=== PATIENT | male | born 1940 | race Caucasian/White ===

== ENCOUNTER 2021-08-22 16:38 | Observation (INO) | payer MEDICARE ==
[~2021-08-22] VITALS: Wt 84.9 kg
[2021-08-22 17:12] LABS: BASO % 0.3 % (0.0-2.0); EOS # 0.1 K/mm3 (0.0-0.7); EOS % 0.6 % (0-4.0); GRAN # 8.8 K/mm3 (1.4-6.5); GRAN % 75.8 % (42.2-75.2); HEMATOCRIT 45.5 % (42.0-52.0); LYMPH % 16.8 % (20.0-51.0); MEAN CELL VOLUME 91 fl (80.0-100.0); MEAN CORPUSCULAR HEMOGLOBIN 30 pg (27.0-31.0); MEAN CORPUSCULAR HGB CONC 33 g/dl (33.0-37.0); MEAN PLATELET VOLUME 9.5 fl (7.4-10.4); MONO # 0.7 K/mm3 (0.1-0.6); MONO % 6.1 % (1.7-9.3); PLATELET COUNT 358 K/mm3 (130-400); RED BLOOD COUNT 4.98 M/mm3 (4.20-5.60); REDCELL DISTRIBUTION WIDTH-CV 13.5 % (11.5-14.5)
[2021-08-22 17:32] LABS: ALBUMIN 3.6 gm/dL (3.4-4.8); BILIRUBIN,TOTAL 0.4 mg/dL (0.2-1.2); CALCIUM 9.3 mg/dL (8.4-10.2); CREATININE, serum 1.48 mg/dL (0.72-1.25); POTASSIUM 4.5 mmol/L (3.5-4.5); TOTAL PROTEIN 7.2 gm/dL (6.2-8.1)
[2021-08-22 17:39] LABS: TROPONIN-I 0.061 ng/mL (0.00-0.033)
[2021-08-22] MEDS ORDERED: PRINIVIL10 MG PO (19:16)
[2021-08-22 20:42] LABS: MAGNESIUM 2.3 mg/dL (1.6-2.6)
[2021-08-22 21:02] LABS: TSH w REFLEX 1.468 uIU/mL (0.350-4.940)
--- NOTE | 2021-08-22 21:17 | NUR ---
Contacted TEMITOPE Cheney for pre-approval for Cardizem drip to be administered in acute care setting.
--- NOTE | 2021-08-22 22:00 | NUR ---
PT ADMITTED TO ROOM 357 PER CART FROM ED ACCOMPANIED BY REFRACTORY GRINDER OPERATOR, CURRENTLY ON CARDIZEM DRIP @3 MG/HR RUNNING INTO RAC PERIPHERAL SITE AND HEPARIN DRIP @15 CC/HR INTO LAC PERIPHERAL SITE. ON RA. ORIENTED TO ROOM AND PLAN OF CARE. PT ABLE TO AMBULATE AD MAHAD, ALERT AND ORIENTED X4, WEDDING COORDINATOR IN PLACE. PT SEEN IN ED BY MARIXA CALDWELL, ORDERS IN PLACE. PT IS PRIMARY CAREGIVER OF SPOUSE WITH DEMENTIA, HE IS WORRIED ABOUT BEING AWAY FROM HER, SHE IS CURRENTLY WITH THEIR DAUGHTER.
[2021-08-22 22:13] VITALS: BP 122/74; PULSE 78; TEMP 97.5
[2021-08-22] MEDS ORDERED: ASPIRIN 81M81 MG/TA2 PO (22:43)
[2021-08-23] VITALS (12 sets, daily range): BP systolic 93–127; BP diastolic 59–91; PULSE 53–162; TEMP 97.5–98
--- NOTE | 2021-08-23 00:45 | NUR ---
NOTIFIED BY LAB HEP XA 1.2, HEPARIN STOPPED FOR 2 HRS, PTT AND HEP XA ORDERED FOR 0245
--- NOTE | 2021-08-23 01:40 | NUR ---
REC'D CALL FROM TELE MONITOR, PT CONVERTED TO NSR
--- NOTE | 2021-08-23 03:15 | NUR ---
BODY WORK AUTO TRIMMER HERE TO DRAW PTT AND HEP XA ORDERED FOR 0245, HEPARIN REMAINS OFF
--- NOTE | 2021-08-23 03:29 | NUR ---
PT RETURNED TO A FIB/FLUTTER WITH RVR
[2021-08-23 04:03] LABS: PARTIAL THROMBOPLASTIN TIME 63.3 SECONDS (26.0-37.0)
--- NOTE | 2021-08-23 04:05 | NUR ---
REC'D CALL FROM LAB, PTT 63.3 HEP XA 0.46, RESTARTED HEPARIN @15CC/HR.
--- NOTE | 2021-08-23 04:47 | NUR ---
REVIEWED HEPARIN PROTOCOL WITH NARGIS LEIVAFAN ENGINE ENGINEER AND NARGIS TABARES, RATE DECREASED TO 12CC/HR REPEAT HEP XA ORDERED FOR 1045
--- NOTE | 2021-08-23 07:15 | NUR ---
Patient sitting up right in bed. IV heparin and cardizem infusing. No pain or redness. Telemetry on. Shift assessment complete. Heart rate at 58 and pt denies any headache, dizziness, SOB. Patient remains NPO for cardioversion. Call light within reach.
[2021-08-23 07:46] LABS: BASO # 0.1 K/mm3 (0.0-0.2); BASO % 0.7 % (0.0-2.0); EOS # 0.2 K/mm3 (0.0-0.7); GRAN # 5.8 K/mm3 (1.4-6.5); GRAN % 68.3 % (42.2-75.2); HEMATOCRIT 39.8 % (42.0-52.0); HEMOGLOBIN 13.1 g/dl (13.5-18.0); LYMPH # 1.8 K/mm3 (1.2-3.4); LYMPH % 20.7 % (20.0-51.0); MEAN CELL VOLUME 92 fl (80.0-100.0); MEAN CORPUSCULAR HEMOGLOBIN 30 pg (27.0-31.0); MEAN CORPUSCULAR HGB CONC 33 g/dl (33.0-37.0); MONO # 0.7 K/mm3 (0.1-0.6); MONO % 7.8 % (1.7-9.3); PLATELET COUNT 271 K/mm3 (130-400); RED BLOOD COUNT 4.35 M/mm3 (4.20-5.60); REDCELL DISTRIBUTION WIDTH-CV 13.6 % (11.5-14.5)
[2021-08-23 08:09] LABS: CALCIUM 8.1 mg/dL (8.4-10.2); CREATININE, serum 0.98 mg/dL (0.72-1.25); POTASSIUM 4.3 mmol/L (3.5-4.5)
--- NOTE | 2021-08-23 08:17 | NUR ---
NOTFIED OF HR IN 160S AND CRITICAL TROPONIN OF 0.099.
--- NOTE | 2021-08-23 08:27 | NUR ---
PT REFUSING ABX, STATING HIS PCP IS AWARE OF LUNG OPACITIES. PT ADAMANT ABOUT RECEIVING PROCEDURE THIS AM AND GOING HOME.
--- NOTE | 2021-08-23 10:13 | NUR ---
Initial visit; Patient thanked Plug Machine Operator for looking in on him and offering God's blessings. Patient introduced Plug Machine Operator to his and daughter.
--- NOTE | 2021-08-23 16:29 | NUR ---
Carpenter Form met with patient to discuss discharge planning. Patient lives in [place] with his , Kristin who is at bedside. Patient sees Dr. Silveira for primary care and obtains medications from [facility] with no difficulties. Patient does not use any DME and is independent with ADLS. Patient reports he has DPOA-HC completed which designates his daughter, Jessica (ph#[phone]). Patient plans to return home upon discharge and is hopeful he can go home today. ТАТЬЯНА collaborated with RN who advised patient has been independent in his room. Discharge Plan: Home
[2021-08-23] MEDS ORDERED: PACERONE400 MG PO ×2 (16:57)
[2021-08-23] MEDS ORDERED: ELIQUIS 5MG PO (16:58)
--- NOTE | 2021-08-23 17:04 | NUR ---
NOTIFIED DR. HAYES OF RESPIRATORY THERAPY EKG STATING AFIB. DR. HAYES REVIEWED NEW EKG STRIP, STATED IN SINUS RHYTHM. NO FURTHER ORDERS AT THIS TIME.
--- NOTE | 2021-08-23 18:30 | NUR ---
Shift report received from Dolores. Patient currently resting in bed with family at bedside. No signs of acute distress. Discharge planning for tonight underway.
--- NOTE | 2021-08-23 18:38 | NUR ---
Pt progressing on plan of care. Post op vitals initiated and monitored after receiving pt back on unit. Pt remains stable, no significant changes noted this shift. Pt anxious to get home, family at bedside. Pt tolerating oral intake well.
--- NOTE | 2021-08-23 19:16 | NUR ---
BACK CHARTING ASSESSMENT NOTE. PT ALERT AND ORIENTED. PT IS TACHYCARDIC, IRREGULAR RHYTHM NOTED ON TELEMETRY. PT DENIES PAIN OR SOA. PT HAS HYPERACTIVE BOWEL SOUNDS, NON-TENDER IN ALL FOUR QUADRANTS. PT HAS LESION ON LEFT MIDDLE TOE. PT HAS CLEAR LUNGS TO AUSCULTATION. PT HAS 2+ PULSES IN ALL EXTREMITIES. PT EXPRESSES FRUSTRATION ON NOT KNOWING WHEN PROCEDURE WILL BE TODAY. PT FAMILY VISITING.
--- NOTE | 2021-08-23 19:30 | NUR ---
Discharge paperwork reviewed with patient, and daughter at this time. IV's and tele removed. Patient is ambulatory and is escorted out of ED entrance.
== END 2021-08-23 19:45 | disposition home or self-care (01) ==
LOC: COL.ER 16:38 → MEDICAL 18:31
PROVIDERS: Physician Assistant; Student in an Organized Health Care Education/Training Program; ADMIT Internal Medicine
DX: I48.92 Unspecified atrial flutter (principal); R79.89 Other specified abnormal findings of blood chemistry; N17.9 Acute kidney failure, unspecified; D72.829 Elevated white blood cell count, unspecified; I10 Essential (primary) hypertension; F19.90 Other psychoactive substance use, unspecified, uncomplicated; Z79.82 Long term (current) use of aspirin; Z87.891 Personal history of nicotine dependence; Z80.1 Family history of malignant neoplasm of trachea, bronchus and lung; Z86.16 Personal history of COVID-19
CPT/HCPCS: 99239; G0378; J0282; J1644; J7030; J7060

== ENCOUNTER 2021-09-09 20:13 | Inpatient (IN) | payer MEDICARE ==
[~2021-09-09] VITALS: Ht 182.9 cm; Wt 85.5 kg
[~2021-09-09 20:13] MED LIST: ASPIRIN 81M81 MG/TA2 PO; ELIQUIS 5MG PO; PACERONE400 MG PO; PRINIVIL10 MG PO
[2021-09-09 22:15] LABS: BASO # 0.1 K/mm3 (0.0-0.2); BASO % 0.5 % (0.0-2.0); EOS # 0.1 K/mm3 (0.0-0.7); EOS % 0.9 % (0-4.0); GRAN # 10.1 K/mm3 (1.4-6.5); HEMOGLOBIN 13.8 g/dl (13.5-18.0); LYMPH # 0.5 K/mm3 (1.2-3.4); LYMPH % 4.4 % (20.0-51.0); MEAN CELL VOLUME 92 fl (80.0-100.0); MEAN CORPUSCULAR HEMOGLOBIN 30 pg (27.0-31.0); MEAN CORPUSCULAR HGB CONC 33 g/dl (33.0-37.0); MEAN PLATELET VOLUME 8.8 fl (7.4-10.4); MONO # 0.6 K/mm3 (0.1-0.6); MONO % 5.6 % (1.7-9.3); PLATELET COUNT 315 K/mm3 (130-400); RED BLOOD COUNT 4.55 M/mm3 (4.20-5.60); REDCELL DISTRIBUTION WIDTH-CV 13.4 % (11.5-14.5)
[2021-09-09 22:26] LABS: ALBUMIN 3.6 gm/dL (3.4-4.8); BILIRUBIN,TOTAL 0.4 mg/dL (0.2-1.2); CALCIUM 9.2 mg/dL (8.4-10.2); CREATININE, serum 1.38 mg/dL (0.72-1.25); POTASSIUM 3.9 mmol/L (3.5-4.5); TOTAL PROTEIN 6.7 gm/dL (6.2-8.1)
[2021-09-09 23:55] LABS: INR 1.2 (0.8-3.0); PROTHROMBIN TIME 13.5 SECONDS (9.7-12.8)
[2021-09-10] VITALS (7 sets, daily range): BP systolic 119–148; BP diastolic 80–90; PULSE 77–94; TEMP 97.7–98.5
--- NOTE | 2021-09-10 01:15 | NUR ---
0015 PATIENT ARRIVED TO ROOM AT THIS TIME, TRANSFERED TO BED WITH 3 ASSIST AND SLIDE BOARD IN USE 0115 VITAL SIGNS OBTAINED, ORIENTED TO ROOM AND ASSESSMENTS COMPLETED, PATIENT RESTING QUIETLY IN BED EDUCATED ABOUT POC AND ORDERS AT THIS TIME FALL RISK BRACELET AND ID BRACELET APPLIED AND BED ALARM SET BEFORE LEAVING ROOM
[2021-09-10 01:22] LABS: COLLECTION METHOD CATHETER
[2021-09-10 01:31] LABS: MUCOUS Present (NOT PRESENT); PH 6 (5-8); SQUAMOUS EPITHELIAL 0-2 /hpf (0-10); URINE APPEARANCE Hazy (CLEAR/HAZY); URINE BACTERIA None Seen (NONE SEEN); URINE BILIRUBIN Negative (NEGATIVE); URINE BLOOD Negative (NEGATIVE); URINE CALCIUM OXALATE CRYSTAL Present (NOT PRESENT); URINE COLOR Yellow (YELLOW); URINE GLUCOSE Negative (NEGATIVE); URINE KETONE Negative (NEGATIVE); URINE LEUKOCYTE ESTERASE Negative (NEGATIVE); URINE NITRATE Negative (NEGATIVE); URINE PROTEIN(semi-quant) Negative (NEGATIVE); URINE RBC 0-2 /hpf (0-2); URINE UROBILINOGEN Negative (NEGATIVE)
[2021-09-10] MEDS ORDERED: PACERONE400 MG PO (01:44)
[2021-09-10 06:41] LABS: BASO % 0.5 % (0.0-2.0); EOS # 0.1 K/mm3 (0.0-0.7); EOS % 0.7 % (0-4.0); GRAN # 6.7 K/mm3 (1.4-6.5); GRAN % 76.4 % (42.2-75.2); HEMATOCRIT 38.2 % (42.0-52.0); HEMOGLOBIN 12.3 g/dl (13.5-18.0); LYMPH % 11.8 % (20.0-51.0); MEAN CELL VOLUME 94 fl (80.0-100.0); MEAN CORPUSCULAR HEMOGLOBIN 30 pg (27.0-31.0); MEAN CORPUSCULAR HGB CONC 32 g/dl (33.0-37.0); MEAN PLATELET VOLUME 9.2 fl (7.4-10.4); MONO # 0.9 K/mm3 (0.1-0.6); PLATELET COUNT 286 K/mm3 (130-400); RED BLOOD COUNT 4.08 M/mm3 (4.20-5.60); REDCELL DISTRIBUTION WIDTH-CV 13.5 % (11.5-14.5)
[2021-09-10 07:08] LABS: CALCIUM 9.2 mg/dL (8.4-10.2); CREATININE, serum 1.11 mg/dL (0.72-1.25); POTASSIUM 3.9 mmol/L (3.5-4.5)
--- NOTE | 2021-09-10 08:26 | NUR ---
Patient resting in bed. Very concerned about when doctor is going to round. Patient really wanting to have surgery today. Discussed with him that being on eliquis may delay surgery a day or 2, due to bleeding risk. He is not understanding of that. He remains NPO at this time. Complains of dry mouth, mouth swabs provided. Patient IV to Lac bad, IV removed and new IV started to Right wrist. Ivf per orders. Patient voiding using urinal without problems. Patient refusing Scds. Did place Christopher to Right leg & encourage ankle pumps. I spoke to Yesenia Menjivar and make her aware of patient concerns about his . Will monitor patient closely.
--- NOTE | 2021-09-10 13:13 | NUR ---
Patient sitting up in bed, working on lunch tray. Patient continue to void using urinal without difficulty. Doctors rounded this am, He is understanding of plan of care. He is frustrated & worried about his , but really hoping he will be able to have surgery tmrw.
--- NOTE | 2021-09-10 13:59 | NUR ---
Patient reports that he resides locally with her who has Dementia and he is the career technology teacher. Patient reports that he has an adult DTR who supports his care. DTR Yudith . Patient reports pcp is Dr. Mariano Silveira and Dr. Layton? who he thinks he has seen. Patient reports that he is wanting to go home however is not sure what he may need for care support. Patient reports that he is open to having home health for his . Unknown on what supports to offer, will reassess after surgery. Will follow.
--- NOTE | 2021-09-10 14:46 | NUR ---
Tyelnol given for hip pain. Patient concerned about trying to have Bm, Bedpan offered, but he is wanting to use toliet. education provided. Will monitor.
--- NOTE | 2021-09-10 17:04 | NUR ---
Patient attempted to have a BM on bedpan, unsuccessful. Reports passing flatus. Pericares provided & soiled underwear & alondra pad replaced. Patient contineus to use urinal to void. Ice pack to broken hip. Ivf per orders. Dinner ordered Denies nausea or needing anything more for pain. He is expecting visitors this evening. Will monitor.
--- NOTE | 2021-09-10 17:55 | NUR ---
Patient working on his dinner. Denies needs.
[2021-09-11 03:44] VITALS: BP 140/78; PULSE 84; TEMP 97.9
[2021-09-11 06:53] LABS: BASO % 0.5 % (0.0-2.0); EOS # 0.4 K/mm3 (0.0-0.7); EOS % 4.2 % (0-4.0); GRAN # 6.1 K/mm3 (1.4-6.5); GRAN % 71.8 % (42.2-75.2); HEMATOCRIT 37.4 % (42.0-52.0); HEMOGLOBIN 12.5 g/dl (13.5-18.0); LYMPH # 1.1 K/mm3 (1.2-3.4); LYMPH % 12.5 % (20.0-51.0); MEAN CELL VOLUME 91 fl (80.0-100.0); MEAN CORPUSCULAR HEMOGLOBIN 30 pg (27.0-31.0); MEAN CORPUSCULAR HGB CONC 33 g/dl (33.0-37.0); MEAN PLATELET VOLUME 9.4 fl (7.4-10.4); MONO # 0.9 K/mm3 (0.1-0.6); MONO % 10.4 % (1.7-9.3); PLATELET COUNT 289 K/mm3 (130-400); RED BLOOD COUNT 4.11 M/mm3 (4.20-5.60); REDCELL DISTRIBUTION WIDTH-CV 13.6 % (11.5-14.5)
--- NOTE | 2021-09-11 06:57 | NUR ---
Pt. progressing w/ plan of care. Report received from NARGIS Bar. Pt. resting in bed at this time. This RN introduced self to pt. and let him know this law writer would be his nurse for today. Pt. very concerned if he will be getting surgery today or not. The pt. has been NPO since midnight per NARGIS Bar. Pt. reports feeling uncomfortable at this time and agreeable to take tylenol. Pt. wetting mouth with mouth swabs at this time. Pt. denies other needs. Call light and belongings in reach.
[2021-09-11 07:13] LABS: CALCIUM 8.4 mg/dL (8.4-10.2); CREATININE, serum 1.05 mg/dL (0.72-1.25); MAGNESIUM 2.1 mg/dL (1.6-2.6); POTASSIUM 3.9 mmol/L (3.5-4.5)
[2021-09-11 08:15] VITALS: BP 130/89; PULSE 89; TEMP 97.4
--- NOTE | 2021-09-11 08:57 | NUR ---
Pt. progressing w/ plan of care. Pt. will likely have L hip surgery tomorrow per orthopedic CLINICAL LABORATORY SERVICE TEACHER. Pt. agreeable w/ plan of care. Breakfast ordered. Pt. requesting bowel meds for today. Call light and belongings in reach.
[2021-09-11 12:35] VITALS: BP 120/67; PULSE 84; TEMP 97.6
[2021-09-11 16:16] VITALS: BP 115/73; PULSE 84; TEMP 98
--- NOTE | 2021-09-11 17:36 | NUR ---
Pt. progressing w/ plan of care. Needs addressed throughout the day. Plan for pt. to get surgery tomorrow, NPO at midnight tonight. Pt. has been eating fair and drinking well. Pt. reports his dinner has been ordered and should be up shortly. Pt. denies pain when hip is in resting position. Pt. has refused to wear the SCDs today. Education provided regarding SCDs. Pt. remains resting in bed until tomorrow. Call light and belongings in reach.
[2021-09-11 20:11] VITALS: BP 156/66; PULSE 77; TEMP 98.4
--- NOTE | 2021-09-11 21:20 | NUR ---
ALERT AND OX4. DENIES SOA, CHEST PAIN OR DIZZY. DENIES PAIN IN HIP UNLESS MOVING, BED REST. POC DISCUSSED- SURGERY IN AM. PM COLACE AND MIRALAX REFUSED. URINAL AT BEDSIDE. CALL LIGHT WI REACH. ICE WATER REFILLED.
[2021-09-12] VITALS (16 sets, daily range): BP systolic 93–147; BP diastolic 58–95; PULSE 69–90; TEMP 94.3–98.5
--- NOTE | 2021-09-12 05:45 | NUR ---
PT SLEPT OVERNIGHT WITHOUT INCIDENT. NPO SINCE 0000. CONSENTED, LR W TUBING. CLEAN GOWN. READY FOR SURGERY.
[2021-09-12 06:30] LABS: HEMATOCRIT 38.2 % (42.0-52.0); HEMOGLOBIN 12.6 g/dl (13.5-18.0)
[2021-09-12 06:46] LABS: CALCIUM 8.6 mg/dL (8.4-10.2); CREATININE, serum 1.06 mg/dL (0.72-1.25); POTASSIUM 4.2 mmol/L (3.5-4.5)
--- NOTE | 2021-09-12 08:00 | NUR ---
Pt. progressing w/ plan of care. AM assessment complete. Pt. has been NPO since midnight. Plan for surgery to left hip today. Pt. denies pain, call light and belongings in reach. Pt. agreeable w/ plan of care.
--- NOTE | 2021-09-12 10:35 | NUR ---
Initial visit; Patient thanked High School Tutor for offering prayer prior to his Procedure. High School Tutor wished him well.
--- NOTE | 2021-09-12 13:54 | NUR ---
Pt. back from surgery. Pt. able to answer questions and is alert. Call light and belongings in reach. Pt.'s niece is at the bedside.
--- NOTE | 2021-09-12 15:22 | NUR ---
MARIXA Bustos working with Ortho surgeon Dr. Green notified of pt.'s low temp. New order obtained for Bairhugger. MARIXA Patterson notified and Dr. Whitfield notified of pt.'s low temp as well. Bairhugger is now on the patient. Pt. and pt.'s niece updated with plan of care. Frequent vital signs in place.
--- NOTE | 2021-09-12 16:04 | NUR ---
Local Tanker Truck Driver collaborated with Hospitalist who advised patient is having surgery today and will need rehab placement. SW followed up with patient following surgery and his niece, Zahraa is at bedside. SW discussed discharge planning and rehab options including IPR and SNF. Patient is firm that he will be returning home to his and states he will sign himself out of the hospital if he has to. SW discussed Home Health services and provided list of providers in [place]. Patient selected [facility]. SW contacted Renee at [facility] and faxed referral. SW contacted patient's daughter, Jessica (ph#[phone]) to provide update. Jessica advised she feels patient would benefit from post acute rehab and will try to talk with patient about this again. ТАТЬЯНА advised PT/OT would work with patient tomorrow. Discharge Plan: Home with [facility]
--- NOTE | 2021-09-12 16:22 | NUR ---
Pt.'s temp is back to normal. MARIXA Patterson notified. Call light and belongings in reach.
--- NOTE | 2021-09-12 21:45 | NUR ---
PT ATTEMPTED TO AMBULATE HIMSELF BECAUSE HE THOUGHT HE COULD DO IT ON HIS OWN EVEN THOUGH HE HAD BEEN INSTRUCTED TO CALL FOR HELP. HE IS ANIXOUS TO GET HOME TO TAKE CARE OF HIS AND STATES "JUST THOUGHT I COULD". INFORMED THE SPINAL TAKES TIME TO WEAR OFF AND HE SHOULD NEVER GET UP WITHOUT HELP. PT WAS SETTING ON FLOOR BESIDE BED WHEN RN ENTERS ROOM TO TAKE VITALS AND PASS MEDS. HELPED BACK INTO BED, ASSESSED AND CALLED PAULETTE CALVIN TO UPDATE. PT DENIES HITTING HEAD OR FALLING HARD STATES LEGS GAVE OUT AND SLIDE DOWN BED ON BOTTOM. VITALS WILL BE OBTAINED Q 30MIN X2 NOW. BED ALARM SET, TALKED ABOUT SAFTEY AND USE OF CALL LIGHT. PT TRYING TO EXPIDITE HIS RECOVERY, INFORMED HE WILL HAVE SET BACK WITH FALLS AND NOT ALLOWING HELP.
--- NOTE | 2021-09-12 22:36 | NUR ---
2000-ALERT AND OX4. DENIES SOA, CHEST PAIN OR DIZZY. DSG TO LF HIP C/D/I. PT ON PHONE WI FAMILY. DENIES PAIN. NO N/V. DISCUSSED PM MEDS WANTED TO WAIT UNTIL LATER THIS EVENING TO TAKE. WILL CALL. BED IN LOW POSITION, CALL LIGHT WI REACH.
[2021-09-13 00:29] VITALS: BP 147/66; PULSE 89; TEMP 97.4
[2021-09-13 04:42] VITALS: BP 138/59; PULSE 83; TEMP 97.6
--- NOTE | 2021-09-13 05:00 | NUR ---
RESTED THROUGH THE NIGHT AFTER TAKING PAIN PILL. FEELS LIKE ANESTHIA IS WEARING OFF NOW.
--- NOTE | 2021-09-13 06:03 | NUR ---
PT STOOD UP AT EDGE OF BED W WALKER AND GAIT BELT. FRUSTRATED BECAUSE HE WANTS PROGRESS FASTER. HAS A AT HOME TO CARE FOR. TALKED ABOUT HIM NEEDING PT AND IT WILL GET BETTER WITH TIME AND NEEDS TO REMEMBER CAESARTEY FIRST. BED ALARM ON REPOSITION IN BED AND ICE ON SURGICAL SITE.
[2021-09-13 06:42] LABS: HEMOGLOBIN 11.6 g/dl (13.5-18.0)
[2021-09-13 06:48] LABS: HEMATOCRIT 35.2 % (42.0-52.0)
[2021-09-13 07:00] VITALS: BP 137/67; PULSE 90; TEMP 98.6
--- NOTE | 2021-09-13 08:00 | NUR ---
0800 Assessment Completed. Pt had INT to L hand, no redness/edema. Has rojas cath w/ clear yellow output & securement device & an occlusive dressing to L hip that is CDI & radha apple on.
--- NOTE | 2021-09-13 08:15 | NUR ---
Pt ordered breakfast & ate 90% of it.
--- NOTE | 2021-09-13 08:45 | NUR ---
Pt ambulated to commode in bathroom w/ assistance. States "I'm passing gas but still havent had a bowel movement since morning (09/08)."
--- NOTE | 2021-09-13 09:37 | NUR ---
Landa catheter removed per drs order. Tolerated well. Tami-care completed.
[2021-09-13 11:00] VITALS: BP 98/60; PULSE 89; TEMP 98
--- NOTE | 2021-09-13 11:08 | NUR ---
Fall risk protocol implemented. Signage placed on door, yellow gown and slippers placed. Chair alarm placed. Assistance with ambulation reviewed with patient.
--- NOTE | 2021-09-13 13:03 | NUR ---
Follow-up visit; Patient thanked Driller'S Assistant for looking in on him again today and states he is "feeling ok" and has some exercises to do that should help. Patient and Driller'S Assistant talked about his tenriism and mutual friends that were [employer] members. Driller'S Assistant wished Ken well.
--- NOTE | 2021-09-13 14:01 | NUR ---
Touched based with the patient on SNF vs IPR vs HH. Patient states he will not be going to a SNF unless his can go. Patient remains that he will be going home with . Patient reports that his daughter Jessica has been caring for his but has tested positive for covid. Patient has another daughter from [place] who is currently driving down and will be here until Sunday. Reminded the patient that this would be so he can get stronger before returning home. Patient reiterates that he will not go to a SNF unless his can stay there with him. Clinical updates faxed to Renee at [facility]
--- NOTE | 2021-09-13 14:28 | NUR ---
Clinical information faxed to Renee at [facility]. Renee states that she accepts the patient post dc if he is still determined to go home with
[2021-09-13 16:00] VITALS: BP 119/63; PULSE 98; TEMP 98.1
--- NOTE | 2021-09-13 21:00 | NUR ---
Pt. sitting up in bed. Pt. is A&OX3, assessment complete. INT to lt. ac patent. Dresing to lt. hip CDI. Pt. denies pain or other needs, call light within reach.
[2021-09-13 22:43] VITALS: BP 120/95; PULSE 120; TEMP 98.3
[2021-09-14 05:15] VITALS: BP 136/56; PULSE 85; TEMP 98.9
[2021-09-14 06:41] LABS: HEMOGLOBIN 10.8 g/dl (13.5-18.0)
[2021-09-14 06:52] VITALS: BP 123/68; PULSE 92; TEMP 97.4
[2021-09-14 06:52] LABS: HEMATOCRIT 32.6 % (42.0-52.0)
--- NOTE | 2021-09-14 09:00 | NUR ---
Aquacel 12 inch dressing placed on L hip. No drainage on occlusive dressing & no redness/bruising. Incision edges well approximated.
[2021-09-14] MEDS ORDERED: ELIQUIS 5MG PO (09:14)
[2021-09-14] MEDS ORDERED: PACERONE400 MG PO (09:16)
[2021-09-14] MEDS ORDERED: DUO-KAPS1 CAP PO (09:18)
[2021-09-14] MEDS ORDERED: NORCO 325 MG-51 TAB PO (09:18)
[2021-09-14] MEDS ORDERED: VITAMIN C500 MG PO (09:19)
[2021-09-14] MEDS ORDERED: OSCAL 500 TAB500 MG PO (09:19)
--- NOTE | 2021-09-14 10:17 | NUR ---
PT DISCHARGE HONME ON STBALE CONDITION. D/C INSTRUCTIONS REVEIWED WITH PT. QUESTION AND CONCERNS ADDRESSED. PT LEFT VIA WC ACCOMPANIED BY STUDENT NURSE. ALL PERSONAL BELONGINGS SEND WITH PT
--- NOTE | 2021-09-14 10:20 | NUR ---
Pt discharged by wheelchair & accompanied by daughter and student to private vehicle.
--- NOTE | 2021-09-14 10:24 | NUR ---
Follow-up visit; Patient thanked Retail Leasing Agent for looking in on him and offering God's blessings.
--- NOTE | 2021-09-14 11:06 | NUR ---
Mission Planner attended clinical rounds with the team and Hospitalist discussed rehab placement again with patient who declines stating "send me home". Hospitalist reviewed risks of returning home with patient and patient verbalized understanding of the risk. Patient is still insistent on returning home. Hospitalist advised patient to be discharged home with Home Health services today. ТАТЬЯНА met with patient and reviewed IM form. Patient verbalized understanding and provided signature. ТАТЬЯНА placed form in chart and provided copy to patient. ТАТЬЯНА contacted patient's daughter, Jessica to provide update. Jessica advised patient is very stubborn. ТАТЬЯНА provided Jessica with private duty resources as she feels patient will need extra assistance once he gets home as he is the primary caregiver for his . Jessiac states she and her sister are at the home right now. ТАТЬЯНА then contacted Renee at [facility] and faxed discharge orders. ТАТЬЯНА provided Renee with Jessica's contact information. ТАТЬЯНА also contacted Vanita RN-Nurse Consultant with [facility] to provide update on patient. She will update patient's primary care physician, Dr. Silveira. Discharge Plan: Home with [facility]
== END 2021-09-14 10:18 | disposition home health service (06) | DRG 522 ==
LOC: COL.ER 20:13 → SURG 22:51
PROVIDERS: Orthopaedic Surgery; Student in an Organized Health Care Education/Training Program; ADMIT Internal Medicine
PROC: 0SRS0J9 Replacement of Left Hip Joint, Femoral Surface with Synthetic Substitute, Cemented, Open Approach (ICD-10-PCS; principal; 2021-09-12 10:30)
DX: S72.002A Fracture of unspecified part of neck of left femur, initial encounter for closed fracture (principal); I48.92 Unspecified atrial flutter; N17.9 Acute kidney failure, unspecified; N18.30 Chronic kidney disease, stage 3 unspecified; I12.9 Hypertensive chronic kidney disease with stage 1 through stage 4 chronic kidney disease, or unspecified chronic kidney disease; I48.0 Paroxysmal atrial fibrillation; F03.90 Unspecified dementia, unspecified severity, without behavioral disturbance, psychotic disturbance, mood disturbance, and anxiety; D64.9 Anemia, unspecified; Z79.82 Long term (current) use of aspirin; Z79.01 Long term (current) use of anticoagulants; Z87.891 Personal history of nicotine dependence; W18.30XA Fall on same level, unspecified, initial encounter; Y93.89 Activity, other specified; Y92.009 Unspecified place in unspecified non-institutional (private) residence as the place of occurrence of the external cause
CPT/HCPCS: 99223-AI; 99232-AI; 99233-AI; 99239; A4314; A9284; C1776; J0690; J2250; J2370; J2704; J3010; J7030; J7120